=== PATIENT | female | born 1975 | race Caucasian/White ===

== ENCOUNTER 2018-03-03 19:40 | Observation (INO) ==
[2018-03-03] MEDS ORDERED: Nitroglycerin 0.4 MG TAB.SUBL SL ONE (19:58)
[2018-03-03] MEDS ORDERED: Aspirin 81 MG TAB.CHEW PO ONE (19:58)
--- NOTE | 2018-03-03 19:59 | Emergency Department Note ---
Disposition Clinical Impression: Chest pain Qualifiers: Chest pain type: other chest pain Qualified Code(s): R07.89 - Other chest pain Disposition: Admitted As Inpatient Condition: Good Time of Disposition: 21:53 Chest Pain HPI - General Chief Complaint: ED Chest Pain Stated Complaint: cp/back pain Time Seen by Provider: 03/03/18 19:51 Vital Signs Reviewed: Yes Nursing Notes Reviewed: Yes - History of Present Illness HPI Narrative: 42-year-old female presents emergency department with concern for chest pain. It started 30 minutes prior to arrival. Patient reporting history of having shortness of breath over the last few weeks. She has been evaluated primary care provider. He has scheduled a echocardiogram as well as cardiac stress test next Friday. Patient states that she is having chest tightness that radiates to her back. Denies any vomiting with it. Is having some shortness of breath at this time. Denies any recent travel. No calf tenderness. No history of blood clots. Does report having DE in her mother in the 40s. Is obese. Pt complaint: chest pain Duration: intermittent Onset: during rest Pain Location: left chest Severity: mild Severity scale (1-10): 7 Pain Radiation: none Improves with: rest Worsens with: nothing Associated symptoms: Denies: nausea, vomiting, diaphoresis, dyspnea, sense of impending doom, palpitations, fever, cough, leg swelling - Related Data Home Medications Medication Instructions Recorded Confirmed Cetirizine HCl [Zyrtec] 10 mg PO DAILY 03/03/18 03/03/18 raNITIdine HCl [Ranitidine HCl] 300 mg PO DAILY 03/03/18 03/03/18 Allergies Allergy/AdvReac Type Severity Reaction Status Date / Time dextromethorphan Allergy Hives Verified 05/30/15 17:28 [From Mucinex DM] guaifenesin [From Mucinex DM] Allergy Hives Verified 05/30/15 17:28 Penicillins Allergy Hives Verified 05/30/15 17:28 All systems ED: reviewed and negative except as stated. Review of Systems: As Per HPI Constitutional: Denies: fever Cardiovascular: Reports: chest pain Respiratory: Reports: dyspnea. Denies: cough Gastrointestinal: Denies: abdominal pain, nausea, vomiting Genitourinary: Denies: urgency, dysuria, frequency Musculoskeletal: Reports: back pain Chest Pain PMH - Past Medical History Medical history: Reports: no medical history Surgical history: Reports: Psychiatric history: Reports: no psych history - Social History Smoking Status: Never smoker Alcohol use: Reports: none Drug use: Reports: none Physical Exam - General Limitations: no limitations General appearance: anxious - Head Head exam: normocephalic - Eye Eye exam: Present: EOMI - ENT ENT exam: normal oropharynx - Neck Neck exam: Present: trachea midline - Chest Chest inspection: Present: symmetric chest wall rise - Respiratory Respiratory exam: Present: normal lung sounds bilaterally. Absent: respiratory distress, accessory muscle use - Cardiovascular Cardiovascular exam: Present: regular rate, normal rhythm, normal heart sounds - Abdominal Exam Abdominal exam: Present: soft, Non-Tender. Absent: distention, guarding, rebound, rigidity - Extremities Exam Extremities exam: Present: normal capillary refill - Back Exam Back exam: Absent: tenderness - Neurological Exam Neurological exam: Present: alert, oriented X3 - Psychiatric Psychiatric exam: Present: normal affect, normal mood - Skin Skin exam: Present: warm, dry, intact, normal color. Absent: rash Course Vital Signs Temperature 98.3 F 03/03/18 19:43 Pulse Rate 98 03/03/18 19:43 Respiratory Rate 20 03/03/18 19:43 Blood Pressure 139/89 03/03/18 19:43 O2 Sat by Pulse Oximetry 98 03/03/18 19:43 Temperature 98.3 F 03/03/18 20:13 Pulse Rate 73 03/03/18 21:46 Respiratory Rate 16 03/03/18 22:28 Blood Pressure 133/92 03/03/18 22:28 O2 Sat by Pulse Oximetry 99 03/03/18 21:46 Oxygen Delivery Oxygen Delivery Room Air Chest Pain - [facility] Narrative Medical decision making narrative: 42-year-old female presents emergency department with concern for chest pain and shortness of breath. Patient hemodynamic stable, but appears to be mildly code 1 the room. EKG did not reveal any ischemic ST changes. Patient did get a a trial of nitroglycerin and this relieved her symptoms completely. Patient has a heart score 4. Chest x-ray did not reveal any cardiopulmonary normalities. Troponin was negative. We will admit patient for chest pain observation. Patient does report getting stress testing as well as echocardiogram next Friday by her primary care provider. Patient agrees to stay. We will admit the hospitalist for further delta troponins and observation. Spoke with hospitalist on the phone who accepted admission of the patient. He requested that we obtain a d-dimer. I also added a urinalysis and urine to be followed up on. Discussed all the plan with the patient. She agreed. Chest X-Ray 03/03/18 19:58 IMPRESSION: Clear lungs. D/ / Huan Rivera MD / Huan Rivera MD Interpreting Provider: Huan Rivera MD Vital Signs Temperature 98.3 F 03/03/18 19:43 Pulse Rate 98 03/03/18 19:43 Respiratory Rate 20 03/03/18 19:43 Blood Pressure 139/89 03/03/18 19:43 O2 Sat by Pulse Oximetry 98 03/03/18 19:43 Temperature 98.3 F 03/03/18 20:13 Pulse Rate 88 03/03/18 20:27 Respiratory Rate 17 03/03/18 20:27 Blood Pressure 136/100 03/03/18 20:27 O2 Sat by Pulse Oximetry 100 03/03/18 20:27 Oxygen Delivery Oxygen Delivery Room Air - Lab Data Result diagrams: 03/03/18 20:09 03/03/18 20:09 Lab Results 03/03/18 03/03/18 03/03/18 Range/Units 20:09 20:09 20:09 WBC 18.6 H (4.3-11.1) K/mcL RBC 5.11 H (3.82-4.97) M/mcL Hgb 14.7 (11.5-15.4) g/dL Hct 42.1 (35.3-44.9) % MCV 82.4 L (83.0-100.0) fL MCH 28.8 (28.0-33.3) pg MCHC 34.9 (31.6-35.5) g/dL RDW 12.7 (11.5-14.5) % Plt Count 346 (140-400) K/mcL MPV 9.4 (9.4-12.4) fL Immature Gran % 0.4 (0-4) % Seg Neutrophils % 71.6 % Lymphocytes % 20.8 % Monocytes % 6.5 % Eosinophils % 0.5 % Basophils % 0.2 % Neutrophils # 13.3 H (1.6-8.9) K/mcL Lymphocytes # 3.9 (0.6-4.6) K/mcL Monocytes # 1.2 (0.0-1.3) K/mcL Eosinophils # 0.1 (0.0-0.6) K/mcL Basophils # 0.0 (0.0-0.2) K/mcL D-Dimer 396 (0-500) ng/mLFEU Sodium 136 (136-145) mEq/L Potassium 3.7 (3.5-5.1) mEq/L Chloride 104 (98-107) mEq/L Carbon Dioxide 27 (23-29) mEq/L BUN 9 (6-20) mg/dL Creatinine 0.80 (0.60-1.20) mg/dL Est GFR ( Amer) > 60 (> 60) Est GFR (Non-Af Amer) > 60 (> 60) BUN/Creatinine Ratio 11 (6-26) Glucose 155 H (70-105) mg/dL Calculated Osmolality 284 (280-300) Calcium 9.5 (8.6-10.3) mg/dL Troponin I < 0.03 (< 0.04) ng/mL Urine Color (Yellow) Urine Clarity (Clear) Urine pH (5.0-8.0) pH Units Ur Specific Supply (1.010-1.025) Urine Protein (Neg-Trace) mg/dL Urine Glucose (UA) (Normal) mg/dL Urine Ketones (Negative) mg/dL Urine Blood (Negative) Urine Nitrite (Negative) Urine Bilirubin (Negative) Urine Urobilinogen (Normal) mg/dL Ur Leukocyte Esterase (Negative) Ur Culture Indicated? (NO) Urine Test (Negative) 03/03/18 03/03/18 Range/Units 21:55 21:55 WBC (4.3-11.1) K/mcL RBC (3.82-4.97) M/mcL Hgb (11.5-15.4) g/dL Hct (35.3-44.9) % MCV (83.0-100.0) fL MCH (28.0-33.3) pg MCHC (31.6-35.5) g/dL RDW (11.5-14.5) % Plt Count (140-400) K/mcL MPV (9.4-12.4) fL Immature Gran % (0-4) % Seg Neutrophils % % Lymphocytes % % Monocytes % % Eosinophils % % Basophils % % Neutrophils # (1.6-8.9) K/mcL Lymphocytes # (0.6-4.6) K/mcL Monocytes # (0.0-1.3) K/mcL Eosinophils # (0.0-0.6) K/mcL Basophils # (0.0-0.2) K/mcL D-Dimer (0-500) ng/mLFEU Sodium (136-145) mEq/L Potassium (3.5-5.1) mEq/L Chloride (98-107) mEq/L Carbon Dioxide (23-29) mEq/L BUN (6-20) mg/dL Creatinine (0.60-1.20) mg/dL Est GFR ( Amer) (> 60) Est GFR (Non-Af Amer) (> 60) BUN/Creatinine Ratio (6-26) Glucose (70-105) mg/dL Calculated Osmolality (280-300) Calcium (8.6-10.3) mg/dL Troponin I (< 0.04) ng/mL Urine Color Yellow (Yellow) Urine Clarity Clear (Clear) Urine pH 6.5 (5.0-8.0) pH Units Ur Specific Supply 1.008 L (1.010-1.025) Urine Protein Negative (Neg-Trace) mg/dL Urine Glucose (UA) 100 H (Normal) mg/dL Urine Ketones Negative (Negative) mg/dL Urine Blood Negative (Negative) Urine Nitrite Negative (Negative) Urine Bilirubin Negative (Negative) Urine Urobilinogen Normal (Normal) mg/dL Ur Leukocyte Esterase Negative (Negative) Ur Culture Indicated? NO (NO) Urine Test Negative (Negative) - EKG Data EKG attestation: Yes I reviewed and interpreted this EKG. EKG results narrative: 19:45 Ventricular rate 105 bpm, OH 154 ms, QRS duration 79 ms, QT 350 ms, QTC 376 ms, normal axis. Sinus tachycardia with a ventricular rate of 105 beats for minute. No evidence of any ischemic ST changes. Heart Score - Score History: Highly Suspicious EKG: Normal Age: Less than 45 Risk Factors: Equal/Greater than 3 risk factor or history of atherosclerotic disease Troponin: Less than normal limit HEART Score Total: 4 Attestation Statement - Attestation Attestation: Dr Meyer : Pt seen in conjunction w/ Resident DR Ulloa; Please see his charting for complete documentation; I spent face to face time w/ the pt and agree w/ the pt 's treatment and disposition; left parasternal chest pain to her back onset at rest tonight while working around 7 PM. No diaphoresis. No such symptoms prior. Former smoker. Mother had coronary disease. She said a variety of symptoms over the last month leading up to today including issues and cough and intermittent hives. All these and been worked up or being followed. She is scheduled to have a stress test next week. She is pain-free at time of my evaluation. Her pain was relieved by sublingual nitroglycerin in the ER. EKG shows no acute injury and initial troponin is unremarkable. Admitted pain-free to the hospitalist accepted her via our conversation on the phone
[2018-03-03 20:26] LABS: Basophils % 0.2 %; Eosinophils # 0.1 K/mcL (0.0-0.6); Eosinophils % 0.5 %; Hematocrit 42.1 % (35.3-44.9); Hemoglobin 14.7 g/dL (11.5-15.4); Immature Granulocytes % 0.4 % (0-4); Lymphocytes # 3.9 K/mcL (0.6-4.6); Lymphocytes % 20.8 %; Mean Corpuscular HGB Conc 34.9 g/dL (31.6-35.5); Mean Corpuscular Hemoglobin 28.8 pg (28.0-33.3); Mean Corpuscular Volume 82.4 fL (83.0-100.0); Mean Platelet Volume 9.4 fL (9.4-12.4); Monocytes # 1.2 K/mcL (0.0-1.3); Monocytes % 6.5 %; Neutrophils # 13.3 K/mcL (1.6-8.9); Platelet Count 346 K/mcL (140-400); Red Blood Count 5.11 M/mcL (3.82-4.97); Red Cell Distribution Width 12.7 % (11.5-14.5); Segmented Neutrophils % 71.6 %
[2018-03-03 20:41] LABS: BUN/Creatinine Ratio 11 (6-26); Blood Urea Nitrogen 9 mg/dL (6-20); Calcium 9.5 mg/dL (8.6-10.3); Carbon Dioxide 27 mEq/L (23-29); Chloride 104 mEq/L (98-107); Glucose 155 mg/dL (70-105); Osmolality,Calculated 284 (280-300); Potassium 3.7 mEq/L (3.5-5.1); Sodium 136 mEq/L (136-145); eGFR For Non-African Americans > 60 (> 60)
[2018-03-03 20:42] LABS: Troponin I < 0.03 ng/mL (< 0.04)
[2018-03-03] MEDS ORDERED: 0.9 % Sodium Chloride 1,000 ML IVC ONE (21:26)
[2018-03-03 22:07] LABS: Bilirubin,Urine Negative (Negative); Blood,Urine Negative (Negative); Clarity,Urine Clear (Clear); Color,Urine Yellow (Yellow); Glucose,Urine (UA) 100 mg/dL (Normal); Ketones,Urine Negative (Negative); Leukocyte Esterase,Urine Negative (Negative); Nitrite,Urine Negative (Negative); PH,Urine 6.5 pH Units (5.0-8.0); Protein,Urine Negative (Neg-Trace); Specific Gravity,Urine 1.008 (1.010-1.025); Urobilinogen,Urine Normal (Normal)
[2018-03-03] MEDS ORDERED: Naloxone 0.4 MG/ML INJ IVP PRN (22:10)
[2018-03-04 02:19] LABS: Basophils # 0.1 K/mcL (0.0-0.2); Basophils % 0.4 %; Eosinophils # 0.1 K/mcL (0.0-0.6); Eosinophils % 0.7 %; Hematocrit 38.9 % (35.3-44.9); Hemoglobin 13.4 g/dL (11.5-15.4); Immature Granulocytes % 0.4 % (0-4); Lymphocytes # 3.4 K/mcL (0.6-4.6); Lymphocytes % 20.3 %; Mean Corpuscular HGB Conc 34.4 g/dL (31.6-35.5); Mean Corpuscular Hemoglobin 28.3 pg (28.0-33.3); Mean Corpuscular Volume 82.1 fL (83.0-100.0); Mean Platelet Volume 9.5 fL (9.4-12.4); Monocytes % 6.1 %; Neutrophils # 12.1 K/mcL (1.6-8.9); Platelet Count 312 K/mcL (140-400); Red Blood Count 4.74 M/mcL (3.82-4.97); Red Cell Distribution Width 12.9 % (11.5-14.5); Segmented Neutrophils % 72.1 %
[2018-03-04 02:42] LABS: Alanine Aminotransferase 22 Units/L (7-52); Albumin 3.6 g/dL (3.5-5.7); Albumin/Globulin Ratio 1.6 (1.1-2.2); Alkaline Phosphatase 65 Units/L (34-104); Aspartate Amino Transferase 11 Units/L (13-39); BUN/Creatinine Ratio 12 (6-26); Bilirubin,Total 0.5 mg/dL (0.3-1.0); Blood Urea Nitrogen 8 mg/dL (6-20); Calcium 9.6 mg/dL (8.6-10.3); Carbon Dioxide 23 mEq/L (23-29); Chloride 107 mEq/L (98-107); Globulin 2.2 g/dL (2.4-3.5); Glucose 185 mg/dL (70-105); Osmolality,Calculated 287 (280-300); Sodium 137 mEq/L (136-145); Total Protein 5.8 g/dL (6.4-8.9); eGFR For Non-African Americans > 60 (> 60)
[2018-03-04 06:43] VITALS: BP 132/86
[2018-03-04] MEDS ORDERED: Nitroglycerin 0.4 MG TAB.SUBL SL PRN (06:43)
--- NOTE | 2018-03-04 06:48 | Internal Med History&Physical ---
Date of Encounter: 03/04/18 Time of Encounter: 06:31 Internal Medicine - H&P: HPI Chief complaint: Chest Pain History of present illness: Ms. Cordova is a 42 year old female with no significant past medical history who presents to the ED with complaints of chest pain. 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 Chest pressure was nonpleuritic, nonreproducible lasting approximately 40 minutes before subsiding after taking aspirin and nitroglycerin. She denies any nausea, vomiting or diaphoresis. Patient states she has an echocardiogram and a stress test scheduled for next Friday by her PCP and has been as of late being worked up for a recent history of hives and is being seen by dermatology and just completed a second course of a prednisone taper. Patient is a former smoker with a 15 year history of half to one pack a day. She states she quit 3-1/2 years ago. Drinks alcohol only on occasion. Reports a history of a triple bypass surgery in her mother at the age of 53. Denies any recent travel. No calf tenderness or lower extremity edema. No history of blood clots. EKG did not reveal any ischemic ST changes. Chest x-ray did not reveal any cardiopulmonary normalities. Troponin was negative. Past Med Surg Social Fam HX - Past Medical History Medical history: no medical history Psychiatric history: no psych history - Past Surgical History Surgical History: appendectomy, - Social History Smoking Status: Former smoker Smokeless Tobacco Status: No Alcohol use: none Drug use: none - Family History Mother Name: Mag Matos Living Status: Age at : 67 Cause of : end stage renal dx and sepsis Hx Family Cancer: Yes (triple bypass) Hx Family Endocrine Disorder: Yes (kidney dx) Internal Medicine - H&P: Meds Cetirizine HCl [Zyrtec] 10 mg PO DAILY 03/03/18 [History] raNITIdine HCl [Ranitidine HCl] 300 mg PO DAILY 03/03/18 [History] 3 Allergy/AdvReac Type Severity Reaction Status Date / Time dextromethorphan Allergy Hives Verified 05/30/15 17:28 [From Mucinex DM] guaifenesin [From Mucinex DM] Allergy Hives Verified 05/30/15 17:28 Penicillins Allergy Hives Verified 05/30/15 17:28 All Systems PM: A 10-system review of systems was performed and is negative for pertinent findings except as documented above in the HPI. - Constitutional Constitutional: no chills, no fever(s), no night sweats - EENT Eyes: no change in vision, no discharge, no pain, no photophobia Ears: no ear discharge, no ear pain, no tinnitus Nose, mouth and throat: no dysphagia, no nasal discharge, no neck pain, no sore throat - Cardiovascular Cardiovascular ROS IM: no chest pain, no diaphoresis, no dyspnea, no lightheadedness, no palpitations, no syncope - Respiratory Respiratory: no cough, no dyspnea, no wheezing, no excessive phlegm production - Gastrointestinal Gastrointestinal: no abdominal pain, no diarrhea, no hematemesis, no hematochezia, no melena, no nausea, no vomiting - Genitourinary Genitourinary: no change in urinary stream, no dysuria, no flank pain, no hematuria - Musculoskeletal Musculoskeletal ROS IM: no numbness, no tingling - Integumentary Integumentary IM: no rash, no unusual bruising - Neurological Neurological ROS: no confusion, no convulsions, no focal weakness, no numbness, no tingling, no tremor(s) - Hematologic/Lymphatic Hematologic/Lymphatic: no easy bruising - Constitutional Vitals: Temp Pulse Resp BP Pulse Ox 97.5 F L 69 16 107/66 97 03/04/18 03:06 03/04/18 03:06 03/04/18 03:06 03/04/18 03:06 03/04/18 03:06 Exam: General: Alert and oriented 3; lying in bed in no acute distress Skin:Normal color, no rash, no lesions. HEENT:EOM, pupils equal, round and reactive. Cardiovascular:Normal S1 & S2, no rubs, murmurs or gallops. No JVD. Pulse regular. Lungs:Normal breath sounds, no wheezes or crackles. Abdomen:Soft, non-tender, no rigidity. Extremities:No deformity, no edema or tenderness, no joint swelling or clubbing. Neurological:Normal cognition and motor skills. Pulses:Carotid and radial pulses normal +2. Rest of the physical exam is non contributory Internal Med - H&P Results - Labs CBC & Chem 7: 03/04/18 02:04 03/04/18 02:04 Labs: Short CBC 03/04/18 Range/Units 02:04 WBC 16.8 H (4.3-11.1) K/mcL Hgb 13.4 (11.5-15.4) g/dL Hct 38.9 (35.3-44.9) % Plt Count 312 (140-400) K/mcL Neutrophils # 12.1 H (1.6-8.9) K/mcL BMP 03/04/18 02:04 Sodium 137 Potassium 4.0 Chloride 107 Carbon Dioxide 23 BUN 8 Creatinine 0.69 Glucose 185 H Calcium 9.6 Cardiac Enzymes 03/04/18 Range/Units 02:04 Troponin I < 0.03 (< 0.04) ng/mL Liver Function 03/04/18 Range/Units 02:04 Total Bilirubin 0.5 (0.3-1.0) mg/dL AST 11 L (13-39) Units/L ALT 22 (7-52) Units/L Alkaline Phosphatase 65 (34-104) Units/L Albumin 3.6 (3.5-5.7) g/dL - Assessment and plan (1) Chest pain Current Visit: Yes Status: Acute Assessment and plan: Chest pain rule out acute coronary syndrome. Patient currently hemodynamically stable and asymptomatic; EKG was unremarkable. Negative troponins. Chest x- ray does not demonstrate any widened mediastinum. Patient received loading dose of aspirin Continue telemetry Trend troponin Sublingual nitroglycerin PRN Echocardiogram Stress test Consider cardiology consult Qualifiers: Chest pain type: other chest pain Qualified Code(s): R07.89 - Other chest pain; R07.8 - Other chest pain (2) Leukocytosis Current Visit: No Status: Acute Assessment and plan: Leukocytosis likely secondary to recent prednisone use. No other evidence of infection at this time. We will trend white blood cell count. Qualifiers: Leukocytosis type: unspecified Qualified Code(s): D72.829 - Elevated white blood cell count, unspecified (3) DVT prophylaxis Current Visit: Yes Status: Acute - Time Spent With Patient Total time spent is greater than 50% in coordination of care (as documented) at patient's floor/unit and/or counseling patient:
[2018-03-04] MEDS ORDERED: *HR* Heparin 5,000 UNIT/ML VIAL SQ SCH (07:00)
[2018-03-04] MEDS ORDERED: Aspirin 81 MG TAB.CHEW PO SCH (10:00)
--- NOTE | 2018-03-04 10:52 | Discharge Summary ---
- NOTES TO OUTPATIENT PROVIDER Notes to Outpatient Provider: Patient recommended to follow-up with with a terminal manager within a week of hospital discharge. Date of Encounter: 03/04/18 Time of Encounter: 10:48 - Discharge Diagnosis (1) Chest pain Priority: Primary Status: Resolved Qualifiers: Chest pain type: other chest pain Qualified Code(s): R07.89 - Other chest pain; R07.8 - Other chest pain (2) Leukocytosis Priority: Secondary Status: Chronic Assessment and Plan: Possible secondary to recent steroid use Qualifiers: Leukocytosis type: unspecified Qualified Code(s): D72.829 - Elevated white blood cell count, unspecified (3) DVT prophylaxis Priority: Secondary Status: Acute Hospital course: Ms. Cordova is a 42 year old female with no significant past medical history who presented to the emergency room complaining of achiness in the center of her back and chest Pressure, lasting approximately 40 minutes, alleviated by aspirin and nitroglycerin. Patient denied nausea, vomiting or shortness of breath. Admitted to the hospital to rule out ACS, ischemic workup negative. Nuclear stress test done, negative for ischemia. Patient recommended to follow- up with a terminal manager within a week for hospital discharge. No episodes of chest pain while hospitalized. Patient is clinically stable to be discharged home. - Time Spent with Patient Total time spent providing and/or coordinating discharge services: Less than 30 minutes - Discharge Medications Home Medications: Cetirizine HCl [Zyrtec] 10 mg PO DAILY 03/03/18 [History] raNITIdine HCl [Ranitidine HCl] 300 mg PO DAILY 03/03/18 [History] Allergies/Adverse Reactions: 3 Allergy/AdvReac Type Severity Reaction Status Date / Time dextromethorphan Allergy Hives Verified 05/30/15 17:28 [From Mucinex DM] guaifenesin [From Mucinex DM] Allergy Hives Verified 05/30/15 17:28 Penicillins Allergy Hives Verified 05/30/15 17:28 Date of admission: 03/03/18 22:13 Primary care physician: Britta Collins CNP - Constitutional Vitals: Temp Pulse Resp BP Pulse Ox 97.6 F 80 18 132/86 97 03/04/18 06:42 03/04/18 06:42 03/04/18 06:42 03/04/18 06:42 03/04/18 06:42 Exam: General: Alert and oriented 4. In no acute distress. Skin:Normal color, no rash, no lesions. HEENT:EOM, pupils equal, round and reactive. Cardiovascular: RRR, Normal S1 & S2, no rubs, murmurs or gallops. Lungs: Clear to auscultation bilaterally, no wheezes or crackles. Abdomen: Obese, Soft, non-tender, no rigidity. NABS in all 4 quadrants. Extremities:No deformity, no edema or tenderness. Neurological:Normal cognition and motor skills. CN II-XII intact. Rest of the physical exam is non contributory - Patient Status Disposition: Home, Self-Care Condition: Good Functional capacity at discharge: independent ambulation Overall status at discharge: patient is back to baseline - Discharge Instructions Follow Up With: Britta Collins OPERATIONS ENGINEER [Primary Care Provider] - - Diet and Activity Activity: resume usual activities as tolerated Diet: advance to your usual diet
--- NOTE | 2018-03-08 09:10 | Electrocardiograph Report ---
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
== END 2018-03-04 12:17 | disposition home or self-care (01) ==
LOC: EMEROOARM 19:40 → 3BNU 19:40 → SUATTDRO 22:13 → 3BNU 23:00
PROVIDERS: ADMIT Internal Medicine; ATTEND Internal Medicine

== ENCOUNTER 2021-10-30 11:53 | Observation (INO) ==
[2021-10-30] MEDS ORDERED: Naloxone 0.4 MG/ML INJ IVP PRN (14:13)
[2021-10-30] MEDS ORDERED: Acetaminophen 325 MG TABLET PO PRN (14:13)
[2021-10-30] MEDS ORDERED: *HR* HYDROcodone/Acet 5/325 mg TABLET PO PRN (14:13)
[2021-10-30] MEDS ORDERED: Ondansetron 4 MG/2 ML VIAL IVP PRN (14:13)
[2021-10-30] MEDS ORDERED: 0.9 % Sodium Chloride 1,000 ML IVC SCH (14:30)
[2021-10-30] MEDS: 0.9 % Sodium Chloride 1,000 ML IVC SCH ×2 (15:42→23:50)
[2021-10-30] MEDS: Pantoprazole 40 MG VIAL IVP SCH (15:43)
[2021-10-30] MEDS: *HR* OxyCODONE Immed Rel 5 MG TABLET PO PRN (16:56)
[2021-10-31] MEDS: *HR* OxyCODONE Immed Rel 5 MG TABLET PO PRN ×2 (02:48→09:38)
[2021-10-31] MEDS: Pantoprazole 40 MG VIAL IVP SCH ×2 (05:25→17:17)
[2021-10-31 05:53] LABS: Basophils % 0.2 %; Eosinophils # 0.1 K/mcL (0.0-0.6); Eosinophils % 0.8 %; Hematocrit 37.5 % (35.3-44.9); Hemoglobin 12.3 g/dL (11.5-15.4); Immature Granulocytes % 0.3 % (0-4); Lymphocytes % 23.1 %; Mean Corpuscular HGB Conc 32.8 g/dL (31.6-35.5); Mean Corpuscular Volume 85.2 fL (83.0-100.0); Mean Platelet Volume 10.1 fL (9.4-12.4); Monocytes # 0.8 K/mcL (0.0-1.3); Monocytes % 6.4 %; Neutrophils # 8.9 K/mcL (1.6-8.9); Platelet Count 301 K/mcL (140-400); Red Cell Distribution Width 12.7 % (11.5-14.5); Segmented Neutrophils % 69.2 %; White Blood Count 12.9 K/mcL (4.3-11.1)
[2021-10-31] MEDS: 0.9 % Sodium Chloride 1,000 ML IVC SCH (07:38)
[2021-10-31] MEDS ORDERED: *HR* FentaNYL (PF) 100 MCG/2 ML VIAL ONE (07:55)
[2021-10-31] MEDS ORDERED: *HR* Rocuronium Bromide 50 MG/5 ML VIAL ONE (07:55)
[2021-10-31] MEDS ORDERED: *HR* Midazolam HCl 2 MG/2 ML VIAL ONE (07:55)
[2021-10-31] MEDS ORDERED: *HR* Succinylcholine 200 MG/10 ML VIAL IVP ONE (07:55)
[2021-10-31] MEDS ORDERED: Lidocaine HCL 4 ML Topical Solution (Laryng-O-Jet Kit Sterile Pak) TP ONE (07:55)
[2021-10-31] MEDS ORDERED: Lidocaine -MPF 2% 2 ML VIAL ONE (07:55)
[2021-10-31] MEDS ORDERED: *HR* Propofol 200 MG/20 ML VIAL IVP ONE ×2 (07:55→12:40)
[2021-10-31] MEDS ORDERED: Ondansetron 4 MG/2 ML VIAL ONE (07:55)
[2021-10-31] MEDS ORDERED: *HR* Labetalol 20 MG/4 ML SYRINGE IVP PRN (09:51)
[2021-10-31] MEDS ORDERED: *HR* HYDROmorphone PF 0.5 MG/0.5 ML SYRINGE IVP PRN (09:51)
[2021-10-31] MEDS ORDERED: *HR* HYDROmorphone 2 MG TABLET PO PRN (09:51)
[2021-10-31] MEDS ORDERED: Acetaminophen IV 1,000 MG/100 ML BAG IVPB ONE (09:51)
[2021-10-31] MEDS ORDERED: Ketorolac 30 MG/ML VIAL IVP PRN (09:51)
[2021-10-31] MEDS ORDERED: Ondansetron 4 MG/2 ML VIAL IVP PRN ×2 (09:51→13:35)
[2021-10-31] MEDS ORDERED: *HR* OxyCODONE Immed Rel 5 MG TABLET PO PRN (09:51)
[2021-10-31] MEDS ORDERED: Famotidine 20 MG/2 ML VIAL IVP ONE (09:51)
[2021-10-31] MEDS ORDERED: Scopolamine Patch 1.5 MG PATCH.TD72 TD SCH (10:00)
[2021-10-31] MEDS ORDERED: Ringers Solution, Lactated 1,000 ML IVC SCH (10:00)
[2021-10-31] MEDS ORDERED: Clindamycin 600 MG/50 ML 600 MG/50 ML IV.SOLN IVPB ONE (11:07)
[2021-10-31] MEDS ORDERED: *HR* HYDROMORPHONE 2 MG/ML VIAL ONE (11:59)
[2021-10-31] MEDS ORDERED: Sugammadex Sodium 200 MG/2 ML VIAL IV ONE (12:08)
[2021-10-31] MEDS ORDERED: Promethazine 6.25 MG in Water for inj. (sterile) 20 ML IVPB PRN (12:55)
[2021-10-31] MEDS ORDERED: Naloxone 0.4 MG/ML INJ IVP PRN (13:35)
[2021-10-31] MEDS: metroNIDAZOLE 500 MG TABLET PO SCH ×2 (14:00→19:43)
[2021-10-31] MEDS: *HR* OxyCODONE/APAP 5/325 TABLET PO PRN ×2 (15:40→19:43)
[2021-10-31] MEDS: Ketorolac 30 MG/ML VIAL IVP SCH (17:17)
[2021-11-01] MEDS: Ketorolac 30 MG/ML VIAL IVP SCH (00:05)
[2021-11-01] MEDS: *HR* OxyCODONE/APAP 5/325 TABLET PO PRN ×3 (01:26→11:41)
[2021-11-01 03:18] VITALS: PULSE 68
[2021-11-01] MEDS ORDERED: Gabapentin 300 MG CAPSULE PO ONE (06:37)
[2021-11-01] MEDS ORDERED: Ibuprofen 800 MG TABLET PO ONE (06:37)
[2021-11-01] MEDS: Pantoprazole 40 MG VIAL IVP SCH (06:48)
[2021-11-01 07:38] VITALS: BP 129/83; TEMP 97.7; O2SAT 100
[2021-11-01] MEDS: metroNIDAZOLE 500 MG TABLET PO SCH (08:57)
[2021-11-01] MEDS ORDERED: Acetaminophen 325 MG TABLET PO SCH (12:00)
[2021-11-03] MEDS ORDERED: Scopolamine Patch 1.5 MG PATCH.TD72 TD SCH (10:00)
== END 2021-11-01 12:53 | disposition home or self-care (01) ==
LOC: 3ANU → SUATTDRO 13:45
PROVIDERS: ADMIT Pharmacist; ATTEND Hospitalist